=== PATIENT | male | born 1945 | race Caucasian/White ===

== ENCOUNTER 2017-11-19 16:04 | Emergency (ER) | payer OTHER, MEDICARE ==
[~2017-11-19] VITALS: Ht 182.9 cm; Wt 80.9 kg
[~2017-11-19 16:04] MED LIST: ACIPHEX; ACIPHEX20 MG PO; LEVAQUIN750 MG PO; LISINOPRIL; Proventil,Ventolin H IH; SINGULAIR; SINGULAIR10 MG PO; ZESTRIL,PRINIVI20 MG PO
[2017-11-19 17:07] LABS: HEMATOCRIT 38.7 % (38.0-50.0); HEMOGLOBIN 13.5 G/DL (12.5-16.6); MCH 32.1 PG (29.0-34.0); MCHC 34.9 G/DL (30.0-36.0); MCV 91.9 FL (86-99); PLATELET COUNT 138 K/uL (156-360); RBC DIS.WIDTH-CV 12.6 % (11.8-14.6); RED BLOOD COUNT 4.21 M/uL (4.00-5.50); WHITE BLOOD COUNT 9.6 K/uL (4.1-10.2)
[2017-11-19 17:16] LABS: CHLORIDE 107 mEq/L (99-109); POTASSIUM 4.2 mEq/L (3.7-5.4); SODIUM 139 mEq/L (136-147)
[2017-11-19 17:18] LABS: GLUCOSE 98 mg/dL (70-99)
[2017-11-19 17:22] LABS: GFR ESTIMATE (CALCULATED) > 59 mL/min/ (58.99-99999)
[2017-11-19 17:23] LABS: UREA NITROGEN (BUN) 17 mg/dL (9-23)
[2017-11-19 18:30] LABS: TROP-I INTERPRETATION NEGATIVE; TROPONIN-I < 0.01 ng/mL (0.0-0.30)
[2017-11-19] MEDS ORDERED: ZITHROMAX Z-PA250 MG PO (21:15)
[2017-11-19 21:34] VITALS: BP 157/84
== END 2017-11-19 21:41 | disposition home or self-care (01) ==
LOC: EME 16:04
DX: J18.9 Pneumonia, unspecified organism (principal); J45.909 Unspecified asthma, uncomplicated; I10 Essential (primary) hypertension; K21.9 Gastro-esophageal reflux disease without esophagitis; Z87.891 Personal history of nicotine dependence
CPT/HCPCS: 70498; 71046; 71275; 80048; 84484; 85027; 93005; 99281; 99285; J7040

== ENCOUNTER 2017-11-23 13:46 | Inpatient (IN) | payer OTHER ==
[~2017-11-23] VITALS: Ht 185.4 cm; Wt 80.0 kg
[~2017-11-23 13:46] MED LIST changes: +ZITHROMAX Z-PA250 MG PO
[2017-11-23 14:46] LABS: BASOPHIL (%) 0.3 % (0-1); EOSINOPHIL (%) 4.9 % (0-5); EOSINOPHIL COUNT 0.3 K/uL (0-0.3); HEMATOCRIT 36.8 % (38.0-50.0); HEMOGLOBIN 12.9 G/DL (12.5-16.6); IMMATURE GRANULOCYTE (%) 0.4 % (0.0-0.7); LYMPHOCYTE (%) 12.5 % (15-42); LYMPHOCYTE COUNT 0.9 K/uL (1.0-2.8); MCH 31.8 PG (29.0-34.0); MCHC 35.1 G/DL (30.0-36.0); MCV 90.6 FL (86-99); MONOCYTE (%) 13.1 % (3-12); MONOCYTE COUNT 0.9 K/uL (0-0.8); NEUTROPHIL (%) 68.8 % (45-76); NEUTROPHIL COUNT 4.7 K/uL (1.8-6.4); PLATELET COUNT 177 K/uL (156-360); RBC DIS.WIDTH-CV 12.1 % (11.8-14.6); RBC DIS.WIDTH-SD 40.1 % (39-53); RED BLOOD COUNT 4.06 M/uL (4.00-5.50); WHITE BLOOD COUNT 6.9 K/uL (4.1-10.2)
[2017-11-23 14:57] LABS: ALBUMIN 3.6 g/dL (3.2-4.8)
[2017-11-23 14:58] LABS: CHLORIDE 107 mEq/L (99-109); POTASSIUM 3.9 mEq/L (3.7-5.4); SODIUM 136 mEq/L (136-147)
[2017-11-23 15:00] LABS: GLUCOSE 97 mg/dL (70-99); TOTAL PROTEIN 6.2 g/dL (6.4-8.3)
[2017-11-23 15:02] LABS: TOTAL BILIRUBIN 0.6 mg/dL (0.0-1.0)
[2017-11-23 15:03] LABS: ALKALINE PHOSPHATASE 95 IU/L (3-129)
[2017-11-23 15:04] LABS: CREATININE 0.8 mg/dL (0.6-1.3); GFR ESTIMATE (CALCULATED) > 59 mL/min/ (58.99-99999)
[2017-11-23 15:05] LABS: AST (GOT) 14 IU/L (2-34); UREA NITROGEN (BUN) 15 mg/dL (9-23)
[2017-11-23 15:07] LABS: ALT (GPT) 15 IU/L (3-49); LIPASE 42 U/L (1.0-51.0)
[2017-11-23 15:17] LABS: APPEARANCE SL.HAZY ((CLEAR)); BILIRUBIN NEGATIVE; BLOOD NEGATIVE; COLOR YELLOW ((YELLOW)); GLUCOSE (STRIP) NEGATIVE; KETONES NEGATIVE; LEUKOCYTES NEGATIVE; NITRITE NEGATIVE; PROTEIN (STRIP) NEGATIVE; SPECIFIC GRAVITY 1.015 (1.000-1.030)
[2017-11-23 15:27] LABS: BACTERIA RARE /HPF; CALCIUM OXALATE CRYSTALS 1+ /HPF; EPITHELIAL CELLS NONE SEEN /HPF; HYALINE CASTS 0-5 /LPF; MUCUS 1+ /LPF; RED BLOOD CELLS 0-5 /HPF (0-5); UCUL ADDED? NO; WHITE BLOOD CELLS 0-5 /HPF (0-5)
[2017-11-23 22:05] VITALS: BP 169/80
[2017-11-24 03:25] VITALS: BP 135/76
[2017-11-24 08:00] VITALS: BP 137/74
[2017-11-24 11:06] VITALS: BP 144/76
[2017-11-24 16:00] VITALS: BP 154/78
[2017-11-24 19:36] VITALS: BP 144/73
[2017-11-24 23:26] VITALS: BP 141/79
[2017-11-25 05:55] VITALS: BP 179/80
[2017-11-25] MEDS ORDERED: COLACE100 MG PO (10:12)
[2017-11-25] MEDS ORDERED: ONDANSETRON HCL8 MG PO (10:12)
[2017-11-25] MEDS ORDERED: DILAUDID4 MG PO (10:12)
[2017-11-25] MEDS ORDERED: PROTONIX40 MG PO (13:37)
[2017-11-25] MEDS ORDERED: ADVAIR 250/501 DISK IH (13:37)
[2017-11-25 16:00] VITALS: BP 145/70
[2017-11-25 20:14] VITALS: BP 140/75
[2017-11-25 23:51] VITALS: BP 156/78
[2017-11-26 03:42] VITALS: BP 190/88
[2017-11-26 04:35] VITALS: BP 186/86
[2017-11-26 08:56] VITALS: BP 164/80
[2017-11-26 11:05] LABS: BASOPHIL (%) 0.2 % (0-1); EOSINOPHIL (%) 0.5 % (0-5); EOSINOPHIL COUNT 0.1 K/uL (0-0.3); HEMATOCRIT 37.5 % (38.0-50.0); HEMOGLOBIN 12.9 G/DL (12.5-16.6); IMMATURE GRANULOCYTE (%) 0.4 % (0.0-0.7); LYMPHOCYTE (%) 6.5 % (15-42); LYMPHOCYTE COUNT 0.7 K/uL (1.0-2.8); MCH 31.5 PG (29.0-34.0); MCHC 34.4 G/DL (30.0-36.0); MCV 91.7 FL (86-99); MONOCYTE (%) 5.2 % (3-12); MONOCYTE COUNT 0.6 K/uL (0-0.8); NEUTROPHIL (%) 87.2 % (45-76); NEUTROPHIL COUNT 9.9 K/uL (1.8-6.4); PLATELET COUNT 212 K/uL (156-360); RBC DIS.WIDTH-CV 12.1 % (11.8-14.6); RBC DIS.WIDTH-SD 40.5 % (39-53); RED BLOOD COUNT 4.09 M/uL (4.00-5.50); WHITE BLOOD COUNT 11.3 K/uL (4.1-10.2)
[2017-11-26 11:29] LABS: CHLORIDE 103 MEQ/L (99-109); CREATININE 0.8 MG/DL (0.6-1.3); GFR ESTIMATE (CALCULATED) > 59 mL/min/ (58.99-99999); GLUCOSE 135 mg/dL (70-99); POTASSIUM 3.9 MEQ/L (3.7-5.4); SODIUM 137 MEQ/L (136-147); UREA NITROGEN (BUN) 14 mg/dL (9-23)
[2017-11-26 20:43] VITALS: BP 180/92
[2017-11-26 23:25] VITALS: BP 190/94
[2017-11-27 00:05] VITALS: BP 180/89
[2017-11-27 06:12] LABS: BASOPHIL (%) 0.2 % (0-1); EOSINOPHIL (%) 2.2 % (0-5); EOSINOPHIL COUNT 0.2 K/uL (0-0.3); HEMATOCRIT 35.1 % (38.0-50.0); IMMATURE GRANULOCYTE (%) 0.2 % (0.0-0.7); LYMPHOCYTE (%) 7.8 % (15-42); LYMPHOCYTE COUNT 0.8 K/uL (1.0-2.8); MCHC 34.2 G/DL (30.0-36.0); MCV 90.7 FL (86-99); MONOCYTE (%) 6.7 % (3-12); MONOCYTE COUNT 0.7 K/uL (0-0.8); NEUTROPHIL (%) 82.9 % (45-76); PLATELET COUNT 197 K/uL (156-360); RBC DIS.WIDTH-CV 12.2 % (11.8-14.6); RBC DIS.WIDTH-SD 40.5 % (39-53); RED BLOOD COUNT 3.87 M/uL (4.00-5.50); WHITE BLOOD COUNT 9.7 K/uL (4.1-10.2)
[2017-11-27 06:36] LABS: CHLORIDE 103 MEQ/L (99-109); CREATININE 0.8 MG/DL (0.6-1.3); GFR ESTIMATE (CALCULATED) > 59 mL/min/ (58.99-99999); GLUCOSE 107 mg/dL (70-99); POTASSIUM 3.8 MEQ/L (3.7-5.4); SODIUM 140 MEQ/L (136-147); UREA NITROGEN (BUN) 13 mg/dL (9-23)
[2017-11-27 08:02] VITALS: BP 162/90
[2017-11-27 11:11] VITALS: BP 161/81
[2017-11-27 16:21] VITALS: BP 175/85
[2017-11-27 20:10] VITALS: BP 175/86
[2017-11-27 23:51] VITALS: BP 160/78
[2017-11-28 04:10] VITALS: BP 185/85
[2017-11-28 08:00] VITALS: BP 165/84
[2017-11-28 11:44] VITALS: BP 176/97
[2017-11-28 15:50] VITALS: BP 158/68
[2017-11-28 20:03] VITALS: BP 150/74
[2017-11-28 23:49] VITALS: BP 148/72
[2017-11-29 07:43] VITALS: BP 169/90
== END 2017-11-29 10:35 | disposition home or self-care (01) | DRG 350 ==
LOC: EME 13:46 → 2EAST 20:42 → EDOF 20:42 → ENRESERV 20:46 → 2EAST 22:00
PROVIDERS: Emergency Medicine; Surgery
DX: K40.30 Unilateral inguinal hernia, with obstruction, without gangrene, not specified as recurrent (principal); J18.9 Pneumonia, unspecified organism; K56.7 Ileus, unspecified; K91.89 Other postprocedural complications and disorders of digestive system; K42.9 Umbilical hernia without obstruction or gangrene; D17.6 Benign lipomatous neoplasm of spermatic cord; I10 Essential (primary) hypertension; J44.9 Chronic obstructive pulmonary disease, unspecified; K21.9 Gastro-esophageal reflux disease without esophagitis; J30.2 Other seasonal allergic rhinitis; I95.9 Hypotension, unspecified; K76.0 Fatty (change of) liver, not elsewhere classified; N28.1 Cyst of kidney, acquired; K57.30 Diverticulosis of large intestine without perforation or abscess without bleeding; Z87.891 Personal history of nicotine dependence
CPT/HCPCS: 71045; 71046; 72132; 74022; 74177; 76870; 80048; 80053; 81003; 83690; 85025; 99281; 99285; C1781; J0330; J0690; J0744; J1100; J1170; J1885; J2270; J2405; J2710; J3010; J7040; J7120; S0028